=== PATIENT | male | born 1955 | race Caucasian/White ===

== ENCOUNTER 2017-08-19 08:17 | Day surgery (SDC) | payer BC ==
[~2017-08-19 08:17] MED LIST: Lactated Ringers 1,000 ML IV SCH; Midazolam 1 MG/ML 2 ML SDV ONE; Propofol 200 MG/20 ML SDV ONE; fentaNYL 100 MCG/2 ML SDV ONE
--- NOTE | 2017-08-19 08:44 | PCM.PREANE ---
Preanesthetic Assessment - Anesthesia/Transfusion/Family Hx Anesthesia History: Prior Anesthesia Without Reaction Family History of Anesthesia Reaction: No Transfusion History: No Prior Transfusion(s) Intubation History: Unknown - Review of Systems General: No Symptoms Pulmonary: No Symptoms Cardiovascular: No Symptoms Gastrointestinal: Abdominal Pain Neurological: No Symptoms Other: Reports: None - Physical Assessment O2 Sat by Pulse Oximetry: 96 Respiratory Rate: 16 Vital Signs: Last Vital Signs Temp 36.4 C 08/19/17 08:24 Pulse 77 08/19/17 08:24 Resp 16 08/19/17 08:24 BP 127/79 08/19/17 08:24 Pulse Ox 96 08/19/17 08:24 Height: 1.83 m Weight: 81.647 kg ASA Class: 2 Mental Status: Alert & Oriented x3 Airway Class: Mallampati = 2 Dentition: Reports: Partial (lower front), Bridge (fixed bridge upper front) Thyro-Mental Finger Breadths: 3 Mouth Opening Finger Breadths: 2 ROM/Head Extension: Full Lungs: Clear to Auscultation, Normal Respiratory Effort Cardiovascular: Regular Rate, Regular Rhythm - Allergies Allergies/Adverse Reactions: Allergies Allergy/AdvReac Type Severity Reaction Status Date / Time diazepam [From Valium] Allergy Abdominal Verified 08/14/17 08:52 Pain esomeprazole [From Nexium] Allergy Abdominal Verified 08/14/17 08:52 Pain hyoscyamine Allergy Abdominal Verified 08/14/17 08:52 Pain metronidazole Allergy Abdominal Verified 08/14/17 08:52 Pain - Blood Blood Available: No - Anesthesia Plan Pre-Op Medication Ordered: None - Acknowledgements Anesthesia Type Planned: MAC Pt an Appropriate Candidate for the Planned Anesthesia: Yes Alternatives and Risks of Anesthesia Discussed w Pt/Guardian: Yes Pt/Guardian Understands and Agrees with Anesthesia Plan: Yes PreAnesthesia Questionnaire HEENT History: Reports: Other (See Below) Other HEENT History: wears glasses Gastrointestinal History: Reports: Diverticulosis, GERD, Helicobacter Pylori Psychiatric History: Reports: Anxiety Dermatologic History: Reports: None - Past Surgical History Head Surgeries/Procedures: Reports: None GI Surgical History: Reports: Cholecystectomy, Colonoscopy, EGD (x2 last one in 2013) Dermatological Surgical History: Reports: Other (See Below) (;eft arm laceration repair) - SUBSTANCE USE Smoking Status *Q: Former Smoker (quit 40 days ago) Tobacco Use Within Last Twelve Months: Cigarettes Recreational Drug Use History: No - HOME MEDS Home Medications: Home Meds Mirtazapine 15 mg PO DAILY 08/14/17 [History] Pantoprazole [ProTONIX] 40 mg PO DAILY 08/14/17 [History] - CURRENT (IN HOUSE) MEDS Current Meds: Current Medications Lactated Ringer's (Ringers, Lactated) 1,000 mls @ 125 mls/hr IV ASDIRECTED TRANG Last Admin: 08/19/17 08:27 Dose: 125 mls/hr Discontinued Medications Fentanyl (Sublimaze) Confirm Administered Dose 100 mcg .ROUTE .STK-MED ONE Stop: 08/19/17 08:09 Midazolam HCl (Versed 1 Mg/Ml) Confirm Administered Dose 2 mg .ROUTE .STK-MED ONE Stop: 08/19/17 08:09 Propofol (Diprivan 20 Ml) Confirm Administered Dose 200 mg .ROUTE .STK-MED ONE Stop: 08/19/17 08:09
--- NOTE | 2017-08-19 10:06 | PCM.OPNOTE ---
- General Post-Op/Procedure Note Date of Surgery/Procedure: 08/19/17 Operative Procedure(s): Esophagogastroduodenoscopy with biopsy Pre Op Diagnosis: Left upper quadrant pain. History of Helicobacter pylori gastritis. Post-Op Diagnosis: Acute and chronic gastritis. Gastric polyp. Anesthesia Technique: MAC (ASA II) Primary Surgeon: Guillermo Anthony Condition: Good Free Text/Narrative:: Dictation [id number] CPT CODE [id number]
[2017-08-19] MEDS ORDERED: Lactated Ringers 1,000 ML IV SCH (10:15)
--- NOTE | 2017-08-19 13:15 | OR ---
SURGEON: Guillermo Anthony M.D. DATE OF PROCEDURE: 08/19/2017 OPERATION PERFORMED: Esophagogastroduodenoscopy with biopsy. ANESTHESIA: MAC. ASA CLASSIFICATION: II. PREOPERATIVE DIAGNOSES: 1. Persistent epigastric and left upper quadrant pain. 2. History of Helicobacter pylori gastritis. POSTOPERATIVE DIAGNOSES: 1. Gastric polyp. 2. Mild gastritis. DESCRIPTION OF PROCEDURE: The patient was taken to the endoscopy room and positioned on the endoscopy table in the supine position. Time-out was called for appropriate identification of patient and procedure. Monitored anesthesia care was provided. The bite block was placed between the patient's teeth. The gastroscope was inserted through the bite block into the oropharynx and advanced without difficulty through the esophagus and stomach into the duodenum where examination was carried out in a retrograde fashion. The duodenum shows no acute inflammatory changes or ulcerations. The stomach does show mild-to- moderate gastritis. Antral biopsies were obtained to look for the presence of Helicobacter pylori. The gastroscope was then retroflexed to visualize the proximal stomach. No mid or proximal lesions were identified. The gastroscope was straightened and slowly withdrawn, carefully visualizing the greater and lesser curvatures. Stomach was aspirated. The GE junction was well defined and shows no acute inflammatory changes or ulcerations. The esophagus demonstrated good contractility. As the scope was withdrawn, the vocal cords were visualized and noted to move symmetrically. The gastroscope was then removed with the patient having tolerated the procedure well. He was taken to recovery room in stable condition. BIN / [place] /[id number]
== END 2017-08-19 11:10 | disposition home or self-care (01) ==
LOC: MW.SDS 08:17
PROVIDERS: ATTEND Surgery
DX: K29.50 Unspecified chronic gastritis without bleeding (principal); K31.7 Polyp of stomach and duodenum; K21.9 Gastro-esophageal reflux disease without esophagitis; F41.9 Anxiety disorder, unspecified; Z87.891 Personal history of nicotine dependence; Z88.8 Allergy status to other drugs, medicaments and biological substances; Z88.1 Allergy status to other antibiotic agents; Z79.899 Other long term (current) drug therapy; Z90.49 Acquired absence of other specified parts of digestive tract; Z98.890 Other specified postprocedural states
CPT/HCPCS: 43239; J2250; J3010; J7120; 88305; 88312; J2704

== ENCOUNTER 2017-09-09 09:21 | Day surgery (SDC) | payer BC ==
[~2017-09-09 09:21] MED LIST changes: +Bupivacaine 0.5% 10 ML SDV ONE; +Bupivacaine 0.5% 30 ML SDV ONE; -Lactated Ringers 1,000 ML IV SCH; -Propofol 200 MG/20 ML SDV ONE; +ceFAZolin 1 GM Vial ONE; -fentaNYL 100 MCG/2 ML SDV ONE
[2017-09-09] MEDS ORDERED: Propofol 200 MG/20 ML SDV ONE (09:43)
[2017-09-09] MEDS ORDERED: fentaNYL 100 MCG/2 ML SDV ONE (09:43)
[2017-09-09] MEDS ORDERED: Lidocaine 2% 5 ML SDV ONE (09:44)
--- NOTE | 2017-09-09 10:13 | PCM.PREANE ---
Preanesthetic Assessment - Anesthesia/Transfusion/Family Hx Anesthesia History: Prior Anesthesia Without Reaction Family History of Anesthesia Reaction: No Transfusion History: No Prior Transfusion(s) Intubation History: Unknown - Review of Systems General: No Symptoms Pulmonary: No Symptoms Cardiovascular: No Symptoms Gastrointestinal: No Symptoms Neurological: No Symptoms Other: Reports: None - Physical Assessment O2 Sat by Pulse Oximetry: 96 Respiratory Rate: 16 Vital Signs: Last Vital Signs Temp 36.8 C 09/09/17 09:38 Pulse 78 09/09/17 09:38 Resp 16 09/09/17 09:38 BP 115/77 09/09/17 09:38 Pulse Ox 96 09/09/17 09:38 Height: 1.83 m Weight: 84.822 kg ASA Class: 2 Mental Status: Alert & Oriented x3 Airway Class: Mallampati = 3 Dentition: Reports: Ehrenfeld(s) (multiple upper and lower), Bridge (upper front 6 teeth bridge) Thyro-Mental Finger Breadths: 3 Mouth Opening Finger Breadths: 2 (very small mouth) ROM/Head Extension: Limited/Partial Lungs: Clear to Auscultation, Normal Respiratory Effort Cardiovascular: Regular Rate, Regular Rhythm - Allergies Allergies/Adverse Reactions: Allergies Allergy/AdvReac Type Severity Reaction Status Date / Time ciprofloxacin Allergy Abdominal Verified 09/05/17 08:25 Pain diazepam [From Valium] Allergy Abdominal Verified 09/05/17 08:17 Pain esomeprazole [From Nexium] Allergy Abdominal Verified 09/05/17 08:17 Pain hyoscyamine Allergy Abdominal Verified 09/05/17 08:17 Pain metronidazole Allergy Abdominal Verified 09/05/17 08:17 Pain - Blood Blood Available: No - Anesthesia Plan Pre-Op Medication Ordered: None - Acknowledgements Anesthesia Type Planned: General Anesthesia Pt an Appropriate Candidate for the Planned Anesthesia: Yes Alternatives and Risks of Anesthesia Discussed w Pt/Guardian: Yes Pt/Guardian Understands and Agrees with Anesthesia Plan: Yes PreAnesthesia Questionnaire HEENT History: Reports: Other (See Below) Other HEENT History: wears glasses Gastrointestinal History: Reports: Diverticulosis, GERD, Helicobacter Pylori Psychiatric History: Reports: Anxiety Dermatologic History: Reports: None - Past Surgical History Head Surgeries/Procedures: Reports: None HEENT Surgical History: Reports: Oral Surgery GI Surgical History: Reports: Cholecystectomy, Colonoscopy, EGD Dermatological Surgical History: Reports: Other (See Below) (laceration repair left arm) - SUBSTANCE USE Smoking Status *Q: Former Smoker (quit 06/23) Tobacco Use Within Last Twelve Months: Cigarettes Recreational Drug Use History: No - HOME MEDS Home Medications: Home Meds Pantoprazole [ProTONIX] 40 mg PO DAILY 08/14/17 [History] Dicyclomine [Bentyl] 20 mg PO TID 09/05/17 [History] Gabapentin [Neurontin] 300 mg PO TID 09/05/17 [History] Hydrocodone/Acetaminophen [Hydrocodon-Acetaminophen 5-325] 1 - 2 tab PO ASDIRECTED PRN 09/05/17 [History] Mirtazapine [Remeron] 15 mg PO BEDTIME 09/05/17 [History] - CURRENT (IN HOUSE) MEDS Current Meds: Current Medications Fentanyl (Sublimaze) 50 mcg IVPUSH Q5M PRN PRN Reason: Pain (severe 7-10) Stop: 09/09/17 14:00 Discontinued Medications Bupivacaine HCl (Marcaine 0.5%) Confirm Administered Dose 30 ml .ROUTE .STK-MED ONE Stop: 09/09/17 07:30 Bupivacaine HCl (Sensorcaine-Mpf 0.5%) Confirm Administered Dose 20 ml .ROUTE .STK-MED ONE Stop: 09/09/17 07:39 Cefazolin Sodium (Ancef) Confirm Administered Dose 1 gm .ROUTE .STK-MED ONE Stop: 09/09/17 07:30 Fentanyl (Sublimaze) Confirm Administered Dose 100 mcg .ROUTE .STK-MED ONE Stop: 09/09/17 09:44 Lidocaine (Xylocaine-Mpf 2%) Confirm Administered Dose 5 ml .ROUTE .STK-MED ONE Stop: 09/09/17 09:45 Midazolam HCl (Versed 1 Mg/Ml) Confirm Administered Dose 2 mg .ROUTE .STK-MED ONE Stop: 09/09/17 08:10 Propofol (Diprivan 20 Ml) Confirm Administered Dose 200 mg .ROUTE .STK-MED ONE Stop: 09/09/17 09:44
[2017-09-09] MEDS ORDERED: ceFAZolin 1 GM Vial ONE ×2 (10:51→11:17)
[2017-09-09] MEDS ORDERED: HYDROmorphone 2 MG/ML SDV ONE (11:10)
[2017-09-09] MEDS ORDERED: Ondansetron 4 MG/2 ML SDV ONE (11:10)
[2017-09-09] MEDS ORDERED: diphenhydrAMINE 50 MG/ML SDV ONE (11:10)
[2017-09-09] MEDS ORDERED: ePHEDrine 50 MG/ML SDV ONE (11:52)
[2017-09-09] MEDS ORDERED: Acetaminophen/oxyCODONE 325-5 MG Tab PO PRN (12:59)
[2017-09-09] MEDS ORDERED: Ondansetron 4 MG Tab.DIS PO PRN (13:00)
[2017-09-09] MEDS: fentaNYL 100 MCG/2 ML SDV IVPUSH PRN ×2 (13:07→13:20)
--- NOTE | 2017-09-09 13:10 | PCM.OPNOTE ---
- General Post-Op/Procedure Note Date of Surgery/Procedure: 09/09/17 Operative Procedure(s): Repair direct RIH with small Bard Perfix plug and patch. Repair direct LIH with extra large Bard Perfix plug and patch. Pre Op Diagnosis: Bilateral reducible inguinal hernias. Post-Op Diagnosis: Bilateral direct inguinal hernias Anesthesia Technique: General LMA (ASA II) Primary Surgeon: Guillermo Anthony Secondary Surgeon: Domingo Treadwell Fluid Replacement, Intraop: 1,600 EBL in mLs: 10 Condition: Good Free Text/Narrative:: Dictation [id number]
--- NOTE | 2017-09-09 13:34 | PCM.POSTAN ---
POST ANESTHESIA ASSESSMENT - MENTAL STATUS Mental Status: Alert, Oriented - RESPIRATORY Respiratory Status: Respiratory Rate WNL, Airway Patent, O2 Saturation Stable - CARDIOVASCULAR CV Status: Pulse Rate WNL, Blood Pressure Stable - GASTROINTESTINAL GI Status: No Symptoms - PAIN Pain Score: 7 - POST OP HYDRATION Hydration Status: Adequate & Stable - OBSERVATIONS Free Text/Narrative:: no anesthesia problems
--- NOTE | 2017-09-09 15:23 | PCM48HPAN ---
Post Anesthesia Note - EVALUATION WITHIN 48HRS OF ANESTHETIC Vital Signs in Normal Range: Yes Patient Participated in Evaluation: Yes Respiratory Function Stable: Yes Airway Patent: Yes Cardiovascular Function Stable: Yes Hydration Status Stable: Yes Pain Control Satisfactory: Yes Nausea and Vomiting Control Satisfactory: Yes Mental Status Recovered: Yes Resp Rate: 9 - COMMENTS/OBSERVATIONS Free Text/Narrative:: no anesthesia problems
--- NOTE | 2017-09-09 18:59 | OR ---
SURGEON: Guillermo Anthony M.D. DATE OF PROCEDURE: 09/09/2017 OPERATIONS PERFORMED: 1. Repair of direct right inguinal hernia with small Bard PerFix plug and patch. 2. Repair of left direct inguinal hernia with extra-large Bard PerFix plug and patch. E COMMERCE MANAGER: Dr. Treadwell, PGY-3. ANESTHESIA: General LMA ASA CLASSIFICATION: II. PREOPERATIVE DIAGNOSIS: Bilateral reducible inguinal. POSTOPERATIVE DIAGNOSIS: Bilateral reducible inguinal. ESTIMATED BLOOD LOSS: 10 mL. INTRAOPERATIVE FLUID REPLACEMENT: 1600 mL of crystalloid. DESCRIPTION OF PROCEDURE: The patient was taken to the operating room and placed on the operating table in the supine position. Time-out was called for appropriate identification of the patient and procedure. Thigh-high TEDs and sequential compression boots had been placed. Surgical sites had been marked prior to the patient entering the operating room. Following satisfactory attainment of general anesthesia with placement of an LMA, the right side was approached first. Skin incisions were marked out to be symmetrical. The skin of the right inguinal crease was then infiltrated with 10 mL of 0.5% Marcaine solution. The skin incision was made and deepened through the subcutaneous tissue obtaining hemostasis with the use of electrocautery. Dissection was carried down to the external oblique fascia, which was opened in the direction of its fibers. The cord was then mobilized and encircled with a Jermaine drain. The patient did have a weak floor and a direct defect medially. Dissection was carried down, so that we could identify Paras's ligament, pubic tubercle, and inguinal ligament. Once that was accomplished and with the cord being encircled, the ilioinguinal nerve retracted out of harm's way. A small Bard PerFix plug and patch was brought to the operating table. This was soaked in 1% Ancef solution. The plug was placed into the medial defect and the patch placed over this. The plug was secured initially with interrupted 0 Ethibond sutures to the Paras's ligament inferiorly and transversalis fascia superiorly. With the patch in place, the patch was also secured with multiple interrupted 0 Ethibond sutures beginning medially and inferiorly to Paras's ligament transitioning to the inguinal ligament and superiorly to transversalis fascia. The wings of the patch were brought around the cord and secured laterally with an 0 Ethibond suture. All sutures with the exception of the lateral stitch were secured. The patient was then given a Valsalva maneuver to 30 cm of water. The repair was solid. The wings were then secured laterally. The wound was inspected for hemostasis. No significant bleeding was noted. The wound was then irrigated with 1% Ancef solution and all fluid aspirated. The cord was then returned to its anatomic position. The external oblique was closed with running 3-0 Polysorb. Lolita's fascia was closed with running 3-0 Polysorb, and the skin edges were reapproximated with subcuticular 4-0 Monocryl, reinforced with Steri-Strips, which were applied after the left inguinal hernia had been repaired. With that accomplished, our attention was now turned to the left side. Again, the skin was infiltrated with 0.5% Marcaine solution. The skin incision was again made and deepened through the subcutaneous tissue obtaining hemostasis with the use of electrocautery. The external oblique was again opened in the direction of its fibers. The patient did have a very large defect on the left side. The cord was mobilized and again encircled with a [place] drain. With that accomplished, an extra-large Bard PerFix plug and patch was brought to the operating table and soaked in 1% Ancef solution. The plug was placed into the direct defect and secured with interrupted 0 Ethibond. The patch was placed over this and likewise secured with interrupted 0 Ethibond beginning medially and inferiorly to Paras's ligament transitioning to the inguinal ligament and superiorly to transversalis fascia. Again, the wings were brought around the cord and secured with an 0 Ethibond suture. All sutures were tied and the patient was given a Valsalva maneuver again to 30 cm of water. Again, the repair was solid. The lateral stitch was then secured. The wound was then irrigated with 1% Ancef solution, and all fluid aspirated. The cord was returned to its anatomic location, and the external oblique fascia reapproximated with running 3-0 Polysorb. Again, Lolita's fascia was closed with running 3-0 Polysorb and the skin edges were reapproximated with subcuticular Monocryl. This incision was also Steri-Stripped. With that accomplished, both incisions were dressed with sterile Tegaderm pads. Sponge, needle, and instrument counts of each individual side were complete and correct. The patient tolerated the procedure well. Following emergence from anesthesia and extubation, he was taken to recovery room in stable condition. BIN MALLORY /[id number] MOISE
== END 2017-09-09 15:15 | disposition home or self-care (01) ==
LOC: MW.SDS 09:21
PROVIDERS: ATTEND Surgery
DX: K40.20 Bilateral inguinal hernia, without obstruction or gangrene, not specified as recurrent (principal); K21.9 Gastro-esophageal reflux disease without esophagitis; F41.9 Anxiety disorder, unspecified; K29.50 Unspecified chronic gastritis without bleeding; Z90.49 Acquired absence of other specified parts of digestive tract; Z88.8 Allergy status to other drugs, medicaments and biological substances; Z88.1 Allergy status to other antibiotic agents; Z79.899 Other long term (current) drug therapy; Z87.891 Personal history of nicotine dependence
CPT/HCPCS: 49505; A9270; J0690; J1170; J1200; J2250; J2405; J3010; 00830; C1781; J2704

== ENCOUNTER 2017-09-30 16:44 | Emergency (ER) | payer BC ==
[2017-09-30] MEDS ORDERED: Morphine 4 MG/ML Syringe IVPUSH ONE (16:54)
--- NOTE | 2017-09-30 16:54 | EDM.PDOC ---
ED HPI GENERAL MEDICAL PROBLEM - General Chief Complaint: Genitourinary Problem Stated Complaint: UNK Time Seen by Provider: 09/30/17 16:53 Source of Information: Reports: Patient - History of Present Illness INITIAL COMMENTS - FREE TEXT/NARRATIVE: HISTORY AND PHYSICAL: History of present illness: [Patient arrives via BLS ambulance with right testicular pain since this morning no fever nausea vomiting chills sweats, he was a transfer from [place] for ultrasound of the right testicle is easily having 7 out of 10 pain concerning the testicle no fever nausea vomiting chills sweats History of recent hernia repair 3 weeks prior ] Review of systems: As per history of present illness and below otherwise all systems reviewed and negative. Past medical history: As per history of present illness and as reviewed below otherwise noncontributory. Surgical history: As per history of present illness and as reviewed below otherwise noncontributory. Social history: No reported history of drug or alcohol abuse. Family history: As per history of present illness and as reviewed below otherwise noncontributory. Physical exam: HEENT: Atraumatic, normocephalic, pupils reactive, negative for conjunctival pallor or scleral icterus, mucous membranes moist, throat clear, neck supple, nontender, trachea midline. Lungs: Clear to auscultation, breath sounds equal bilaterally, chest nontender. Heart: S1S2, regular, negative for clicks, rubs, or JVD. Abdomen: Soft, nondistended, nontender. Negative for masses or hepatosplenomegaly. Negative for costovertebral tenderness. Pelvis: Stable nontender. Genitourinary: Deferred. Rectal: Deferred. Extremities: Atraumatic, negative for cords or calf pain. Neurovascular unremarkable. Neuro: Awake, alert, oriented. Cranial nerves II through XII unremarkable. Cerebellum unremarkable. Motor and sensory unremarkable throughout. Exam nonfocal. Diagnostics: [Ultrasound scrotum and contents UA with culture GC Chlamydia ] Therapeutics: [Bactrim DS by mouth twice a day #20 no refill [place] ] Impression: [Testicular pain] Definitive disposition and diagnosis as appropriate pending reevaluation and review of above. Right Groin Pain Score (Numeric/FACES): 4 - Related Data Allergies Allergy/AdvReac Type Severity Reaction Status Date / Time ciprofloxacin Allergy Abdominal Verified 09/05/17 08:25 Pain diazepam [From Valium] Allergy Abdominal Verified 09/05/17 08:17 Pain esomeprazole [From Nexium] Allergy Abdominal Verified 09/05/17 08:17 Pain hyoscyamine Allergy Abdominal Verified 09/05/17 08:17 Pain metronidazole Allergy Abdominal Verified 09/05/17 08:17 Pain Home Meds: Home Meds Dicyclomine [Bentyl] 30 mg PO TID 09/05/17 [History] Omeprazole 40 mg PO DAILY 09/30/17 [History] Sucralfate [Carafate] 1 gm PO QID 09/30/17 [History] Past Medical History HEENT History: Reports: Other (See Below) Other HEENT History: wears glasses Gastrointestinal History: Reports: Diverticulosis, GERD, Helicobacter Pylori Psychiatric History: Reports: Anxiety Dermatologic History: Reports: None - Past Surgical History Head Surgeries/Procedures: Reports: None HEENT Surgical History: Reports: Oral Surgery GI Surgical History: Reports: Cholecystectomy, Colonoscopy, EGD Dermatological Surgical History: Reports: Other (See Below) (laceration repair left arm) Social & Family History - Tobacco Use Smoking Status *Q: Former Smoker (quit 06/23) Years of Tobacco use: 40 Used Tobacco, but Quit: Yes Month/Year Tobacco Last Used: quit smoking 39 days ago - Recreational Drug Use Recreational Drug Use: No ED ROS GENERAL - Review of Systems Review Of Systems: ROS reveals no pertinent complaints other than HPI. ED EXAM, GENERAL - Physical Exam Exam: See Below Course - Vital Signs Last Recorded V/S: Last Vital Signs Temp 97.7 F 09/30/17 16:55 Pulse 69 09/30/17 16:55 Resp 18 09/30/17 16:55 BP 121/80 09/30/17 16:55 Pulse Ox 99 09/30/17 16:55 - Orders/Labs/Meds Orders: Active Orders 24 hr Category Date Time Status Scrotal Duplex Ltd [US] Routine Exams 09/30/17 Taken Scrotum and Contents [US] Stat Exams 09/30/17 16:49 Taken CHLAMYDIA AND GONORRHEA BY TMA Stat Lab 09/30/17 16:49 Ordered CULTURE URINE [RM] Stat Lab 09/30/17 16:49 Ordered UA W/MICROSCOPIC [URIN] Stat Lab 09/30/17 16:49 Ordered Meds: Medications Discontinued Medications Generic Name Dose Route Start Last Admin Trade Name Freq PRN Reason Stop Dose Admin Morphine Sulfate 2 mg 09/30/17 16:54 09/30/17 17:24 Morphine IVPUSH 09/30/17 16:55 2 mg ONETIME ONE Administration Departure - Departure Time of Disposition: 18:40 Disposition: Home, Self-Care 01 Condition: Good Clinical Impression: Orchitis - Discharge Information Referrals: PCP,None [Primary Care Provider] - Forms: ED Department Discharge Additional Instructions: Medication as prescribed Return if symptoms persist or worsen Follow-up with primary care in 2 weeks sooner as needed The following information is given to patients seen in the emergency department who are being discharged to home. This information is to outline your options for follow-up care. We provide all patients seen in our emergency department with a follow-up referral. The need for follow-up, as well as the timing and circumstances, are variable depending upon the specifics of your emergency department visit. If you don't have a primary care physician on staff, we will provide you with a referral. We always advise you to contact your personal physician following an emergency department visit to inform them of the circumstance of the visit and for follow-up with them and/or the need for any referrals to a consulting specialist. The emergency department will also refer you to a specialist when appropriate. This referral assures that you have the opportunity for follow-up care with a specialist. All of these measure are taken in an effort to provide you with optimal care, which includes your follow-up. Under all circumstances we always encourage you to contact your private physician who remains a resource for coordinating your care. When calling for follow-up care, please make the office aware that this follow-up is from your recent emergency room visit. If for any reason you are refused follow-up, please contact the [facility] emergency department at and asked to speak to the emergency department charge nurse. - My Orders Last 24 Hours: My Active Orders 09/30/17 Scrotal Duplex Ltd [US] Routine 09/30/17 16:49 Scrotum and Contents [US] Stat CHLAMYDIA AND GONORRHEA BY TMA Stat CULTURE URINE [RM] Stat UA W/MICROSCOPIC [URIN] Stat - Assessment/Plan Last 24 Hours: My Active Orders 09/30/17 Scrotal Duplex Ltd [US] Routine 09/30/17 16:49 Scrotum and Contents [US] Stat CHLAMYDIA AND GONORRHEA BY TMA Stat CULTURE URINE [RM] Stat UA W/MICROSCOPIC [URIN] Stat
[2017-09-30] MEDS ORDERED: methylPREDNISolone Sodium Succinate 125 MG/2 ML SDV IVPUSH ONE (17:30)
--- NOTE | 2017-10-01 10:11 | US ---
EXAM DATE: 09/30/17 PATIENT'S AGE: 62 Patient: SERA LOYA Facility: [place], [place] Site . Site : 1955 Study: US Testicle [id number] 6:02:44 PM Ordering Physician: Lucas Price Final Report: INDICATION: Right testicular pain and swelling. Recent bilateral hernia repair. TECHNIQUE: Ultrasound of the scrotum and contents. Sonographic mijares-scale images were obtained with spectral and color Doppler waveform and spectral waveform analysis of the testicles. COMPARISON: None FINDINGS: Bother testicles are normal in size. Right testicle demonstrates a heterogeneous echotexture. Left testicle demonstrates a normal homogeneous echotexture. No masses. No suspicious calcifications. Normal arterial and venous color Doppler blood flow and spectral waveforms are present in both testicles. Epididymis: Unremarkable bilaterally. Normal blood flow. Other: Small right-sided hydrocele. No sign of varicocele. Scrotal wall is normal. IMPRESSION: Nonspecific heterogeneity of the right testicle suggesting the presence of edema. There is also a small right-sided hydrocele. Vascularity in both testicles is normal, no sign of torsion or inflammation. Remainder of the exam is unremarkable. Dictated by Yonatan Bowen MD @ Sep 30 2017 6:21PM (Electronic Signature) Report Signed by Proxy. MOISE
--- NOTE | 2017-10-01 10:12 | US ---
EXAM DATE: 09/30/17 PATIENT'S AGE: 62 Patient: SERA LOYA Facility: [place], [place] Site . Site : 1955 Study: US Testicle [id number] 6:02:44 PM Ordering Physician: Lucas Price Final Report: INDICATION: Right testicular pain and swelling. Recent bilateral hernia repair. TECHNIQUE: Ultrasound of the scrotum and contents. Sonographic mijares-scale images were obtained with spectral and color Doppler waveform and spectral waveform analysis of the testicles. COMPARISON: None FINDINGS: Bother testicles are normal in size. Right testicle demonstrates a heterogeneous echotexture. Left testicle demonstrates a normal homogeneous echotexture. No masses. No suspicious calcifications. Normal arterial and venous color Doppler blood flow and spectral waveforms are present in both testicles. Epididymis: Unremarkable bilaterally. Normal blood flow. Other: Small right-sided hydrocele. No sign of varicocele. Scrotal wall is normal. IMPRESSION: Nonspecific heterogeneity of the right testicle suggesting the presence of edema. There is also a small right-sided hydrocele. Vascularity in both testicles is normal, no sign of torsion or inflammation. Remainder of the exam is unremarkable. Dictated by Yonatan Bowen MD @ Sep 30 2017 6:21PM (Electronic Signature) Report Signed by Proxy. MOISE
== END 2017-09-30 19:50 | disposition home or self-care (01) ==
LOC: MW.ED 16:44
DX: N45.2 Orchitis (principal); K21.9 Gastro-esophageal reflux disease without esophagitis; Z88.8 Allergy status to other drugs, medicaments and biological substances; Z79.899 Other long term (current) drug therapy; Z87.891 Personal history of nicotine dependence
CPT/HCPCS: 76870; 81001; 87086; 87491; 87591; 93976; 96374; 99284; J2270; 99283